=== PATIENT | female | born 1990 | race Caucasian/White ===

== ENCOUNTER 2023-10-30 12:51 | Emergency (ER) | payer MEDICAID ==
[~2023-10-30] VITALS: Ht 165.1 cm; Wt 65.0 kg
[2023-10-30 12:55] VITALS: O2SAT 99
[2023-10-30] MEDS: ACETAMINOPHEN 650MG/20.3ML UDC PO ONE (13:45)
[2023-10-30 13:49] VITALS: BP 124/87; PULSE 89; RESP 16; TEMP 98.5
[2023-10-30] MEDS ORDERED: AMOX1TAB16 MT (15:50)
== END 2023-10-30 13:50 | disposition home or self-care (01) ==
LOC: ER 13:13
DX: J02.0 Streptococcal pharyngitis (principal)
CPT/HCPCS: 87430; 99283